=== PATIENT | female | born 1995 | race Asian ===

== ENCOUNTER 2017-08-10 13:17 | Emergency (ER) | payer OTHER ==
[~2017-08-10] VITALS: Ht 162.6 cm; Wt 49.0 kg
[~2017-08-10 13:17] MED LIST: ALBU0.086 INH; PRED50TA PO; VENTAER INH
[2017-08-10 13:32] VITALS: BP 110/73; PULSE 126; RESP 24; TEMP 101.9; O2SAT 98
[2017-08-10 14:12] VITALS: BP 118/53; PULSE 122; RESP 22; TEMP 102.4; O2SAT 100
[2017-08-10] MEDS ORDERED: VENTAER INH (14:21)
--- NOTE | 2017-08-10 14:21 | PD ---
HPI Chief Complaint: Cold / Flu Symptoms Time Seen by Provider: 14:11 Travel History International Travel<30 days: No Contact w/Intl Traveler<30days: No Traveled to known affect area: No History of Present Illness HPI This 22-year-old female has been sick since Tuesday. She has been coughing and having fever. She is taking [id number] medicine. She has a history of asthma and she is using an albuterol inhaler. Several members of her family have been sick with what is thought to be the flu. She is complaining of sore throat and trouble swallowing. PFSH Past Medical History Asthma: Yes Diminished Hearing: No ?: Not LMP: NOW Social History Alcohol Use: No Tobacco Use: No Substance Use: No Allergies-Medications (Allergen,Severity, Reaction): Coded Allergies: No Known Allergies (Unverified Adverse Reaction, Unknown, 08/10/17) Reported Meds & Prescriptions Reported Meds & Active Scripts Active Reported Ventolin Hfa 18 GM Inh (Albuterol Sulfate) 90 Mcg/Act Aer 2 Puff INH Q4-6H PRN Review of Systems General / Constitutional: Positive: Fever, Chills Eyes: No: Diploplia, Blurred Vision HENT: Positive: Sore Throat, No: Headaches, Vertigo Cardiovascular: No: Chest Pain or Discomfort Respiratory: Positive: Cough, Shortness of Breath Gastrointestinal: No: Vomiting, Diarrhea Genitourinary: No: Urgency, Frequency Musculoskeletal: Positive: Myalgias, No: Arthralgias Skin: No Rash Hematologic/Lymphatic: No: Easy Bruising Physical Exam Narrative Initially 101.9 moldable female SKIN: Focused skin assessment warm/dry. HEAD: Atraumatic. Normocephalic. EYES: Pupils equal and round. No scleral icterus. No injection or drainage. ENT: No nasal bleeding or discharge. Mucous membranes pink and moist. Pharynx is erythematous or no exudates NECK: Trachea midline. No JVD. CARDIOVASCULAR: Regular rate and rhythm. No murmur appreciated. RESPIRATORY: No accessory muscle use. There are scattered wheezes. GASTROINTESTINAL: Abdomen soft, non-tender, nondistended. Hepatic and splenic margins not palpable. MUSCULOSKELETAL: No obvious deformities. No clubbing. No cyanosis. No edema. NEUROLOGICAL: Awake and alert. No obvious cranial nerve deficits. Motor grossly within normal limits. Normal speech. PSYCHIATRIC: Appropriate mood and affect; insight and judgment normal. Data Data Last Documented VS Vital Signs Date Time Temp Pulse Resp B/P (MAP) Pulse Ox O2 Delivery O2 Flow Rate FiO2 08/10/17 14:18 22 100 08/10/17 14:12 102.4 122 118/53 (74) Orders Orders Complete Blood Count With Diff (08/10/17 14:17) Basic Metabolic Panel (Bmp) (08/10/17 14:17) Chest, Single Ap (08/10/17 14:17) Albuterol-Ipratropium Neb (Duoneb Neb) (08/10/17 14:30) Methylprednisolone So Succ Inj (Solumedr (08/10/17 14:30) Ibuprofen Liq (Motrin Liq) (08/10/17 14:30) Influenzae A/B Antigen (08/10/17 14:17) Potassium Chloride (Kcl) (08/10/17 15:00) Labs Laboratory Tests Test 08/10/17 14:32 White Blood Count 4.9 TH/MM3 Red Blood Count 4.63 MIL/MM3 Hemoglobin 13.8 GM/DL Hematocrit 42.4 % Mean Corpuscular Volume 91.7 FL Mean Corpuscular Hemoglobin 29.9 PG Mean Corpuscular Hemoglobin Concent 32.6 % Red Cell Distribution Width 11.9 % Platelet Count 237 TH/MM3 Mean Platelet Volume 8.1 FL Neutrophils (%) (Auto) 78.1 % Lymphocytes (%) (Auto) 12.7 % Monocytes (%) (Auto) 8.7 % Eosinophils (%) (Auto) 0.3 % Basophils (%) (Auto) 0.2 % Neutrophils # (Auto) 3.9 TH/MM3 Lymphocytes # (Auto) 0.6 TH/MM3 Monocytes # (Auto) 0.4 TH/MM3 Eosinophils # (Auto) 0.0 TH/MM3 Basophils # (Auto) 0.0 TH/MM3 CBC Comment DIFF FINAL Differential Comment Blood Urea Nitrogen 8 MG/DL Creatinine 0.74 MG/DL Random Glucose 101 MG/DL Calcium Level 8.7 MG/DL Sodium Level 134 MEQ/L Potassium Level 3.3 MEQ/L Chloride Level 103 MEQ/L Carbon Dioxide Level 25.3 MEQ/L Anion Gap 6 MEQ/L Estimat Glomerular Filtration Rate 97 ML/MIN MDM Medical Decision Making Medical Screen Exam Complete: Yes Emergency Medical Condition: Yes Medical Record Reviewed: Yes Differential Diagnosis Differential includes influenza, asthma exacerbation, bronchitis Narrative Course Test for influenza is negative. White count is 4.7. I will initiate antibiotics as he is asthmatic and I am going to start steroids. She will be given Medrol dose pack and prescription for amoxicillin Diagnosis Primary Impression: Asthma exacerbation Qualified Codes: J45.901 - Unspecified asthma with (acute) exacerbation Additional Impression: Upper respiratory infection Qualified Codes: J06.9 - Acute upper respiratory infection, unspecified Scripts Methylprednisolone Dosepak (Medrol Dosepak) 4 Mg Dspk 4 MG PO DIRECTED, #1 DSPK 0 Refills Per Pharmacist direction Prov: Jorge L Marcus MD 08/10/17 Amoxicillin (Amoxicillin) 500 Mg Cap 500 MG PO TID for Infection for 7 Days, CAP 0 Refills Prov: Jorge L Marcus MD 08/10/17 Disposition: 01 DISCHARGE HOME Condition: Stable Jorge L Marcus MD Aug 10, 2017 14:21
[2017-08-10] MEDS ORDERED: IBUPROFEN SUSP 100 MG/5 ML UDC PO ONE (14:30)
[2017-08-10] MEDS ORDERED: RESP: ALBUTEROL 2.5 MG/IPRATROPIUM 0.5 MG NEB (SCH) NEB ONE (14:30)
[2017-08-10] MEDS ORDERED: methylPREDNISolone SOD SUCC 125 MG/2 ML VIAL IV PUSH ONE (14:30)
[2017-08-10 14:44] LABS: AUTOMATED NEUTROPHIL # 3.9 TH/MM3 (1.8-7.7); BASOPHIL % 0.2 % (0.0-2.0); EOSINOPHIL % 0.3 % (0.0-4.0); HEMATOCRIT 42.4 % (35.0-46.0); HEMOGLOBIN 13.8 GM/DL (11.6-15.3); LYMPH % 12.7 % (9.0-44.0); LYMPHOCYTE # 0.6 TH/MM3 (1.0-4.8); MEAN CELL VOLUME 91.7 FL (80.0-100.0); MEAN CORPUSCULAR HEMOGLOBIN 29.9 PG (27.0-34.0); MEAN CORPUSCULAR HGB CONC 32.6 % (32.0-36.0); MEAN PLATELET VOLUME 8.1 FL (7.0-11.0); MONO % 8.7 % (0.0-8.0); MONOCYTE # 0.4 TH/MM3 (0-0.9); NEUT % 78.1 % (16.0-70.0); PLATELET COUNT 237 TH/MM3 (150-450); RED BLOOD COUNT 4.63 MIL/MM3 (4.00-5.30); RED CELL DISTRIBUTION WIDTH 11.9 % (11.6-17.2); WHITE BLOOD COUNT 4.9 TH/MM3 (4.0-11.0)
--- NOTE | 2017-08-10 14:46 | RADRPT ---
EXAM DATE/TIME: 08/10/2017 14:30 [facility] COMPARISON: No previous studies available for comparison. INDICATIONS : Flu like symptoms MEDICAL HISTORY : Asthma SURGICAL HISTORY : None. ENCOUNTER: Initial ACUITY: 3 days PAIN SCORE: 0/10 LOCATION: Bilateral chest FINDINGS: Scoliosis and degenerative changes of the thoracic spine are noted. The heart is normal. The pulmonar y vascular pattern is normal. The lungs are clear. CONCLUSION: No acute cardiopulmonary disease. Scoliosis and degenerative changes involving the th oracic spine. Amari Choi MD on August 10, 2017 at 14:43 Board Certified Radiologist. This report was verified electronically.
[2017-08-10 14:52] LABS: CALCIUM 8.7 MG/DL (8.5-10.1)
[2017-08-10 14:53] LABS: BICARBONATE 25.3 MEQ/L (21.0-32.0)
[2017-08-10 14:56] LABS: CREATININE 0.74 MG/DL (0.50-1.00)
[2017-08-10] MEDS ORDERED: POTASSIUM CHLORIDE 20 MEQ CONTROLLED RELEASE TAB PO ONE (15:00)
[2017-08-10] MEDS ORDERED: AMOX500C PO (15:09)
[2017-08-10] MEDS ORDERED: MEDR4PAK PO (15:09)
[2017-08-10 15:15] VITALS: TEMP 101.5
== END 2017-08-10 15:28 | disposition home or self-care (01) ==
LOC: PHED 13:17
DX: J45.901 Unspecified asthma with (acute) exacerbation (principal); J06.9 Acute upper respiratory infection, unspecified; Z79.899 Other long term (current) drug therapy
CPT/HCPCS: 71045; 80048; 85025; 87804; 94664; 96374; 99284; J2930